=== PATIENT | male | born 1980 | race African-American/Black ===

== ENCOUNTER 2018-02-10 18:41 | Emergency (ER) | payer BC ==
[2018-02-10 19:56] VITALS: BP 159/104
--- NOTE | 2018-02-10 20:37 | RADIOLOGY REPORT (SQ) ---
EXAM DESCRIPTION: CT FACIAL AREA WITH COMPLETED DATE/TIME: 02/10/2018 8:23 pm REASON FOR STUDY: FACIAL FOREHEAD ABSCESS EVAL COMPARISON: None. TECHNIQUE: Post contrast images through the facial bones and orbits windowed for bone and soft tissu e. Additional coronal and sagittal reconstructed images reviewed. All images stored on PACS. All CT scanners at this facility use dose modulation, iterative reconstruction, and/or weight based d osing when appropriate to reduce radiation dose to as low as reasonably achievable (ALARA). [facility]: Dose Right [facility]: CareDose [facility]: Dose Right [facility]: Teradose 4D [facility]: Zagster CONTRAST TYPE AND DOSE: contrast/concentration: Isovue 350.00 mg/ml; Total Contrast Delivered: 50.0 ml; Total Saline Delivered: 50.0 ml RENAL FUNCTION: None required. The patient is less than 50 years old. RADIATION DOSE: CT Rad equipment meets quality standard of care and radiation dose reduction techniq ues were employed. CTDIvol: 30.4 mGy. DLP: 735 mGy-cm. . LIMITATIONS: None. FINDINGS: FACIAL BONES: No fracture or bone lesion. ORBITS: Intact. No fracture. Symmetric intact globes and retroorbital soft tissues. PARANASAL SINUSES: Clear. No significant mucosal thickening, mass or fluid. No nasal polyps. Maxilla ry sinus outlets are patent. SOFT TISSUES: There is mild soft tissue swelling asymmetric of the right forehead. No discrete absce ss. INFERIOR BRAIN: Limited view. No acute findings. OTHER: No other significant finding. IMPRESSION: Soft tissue swelling of the forehead without discrete abscess. Otherwise negative study . TECHNICAL DOCUMENTATION: JOB ID: [id number] Quality ID # [id number]: Final reports with documentation of one or more dose reduction techniques (e.g., Au tomated exposure control, adjustment of the mA and/or kV according to patient size, use of iterative reconstruction technique) 2010 [employer]- All Rights Reserved Reading location - IP/workstation name: [email or web address]
--- NOTE | 2018-02-10 20:43 | ER Document Report ---
HPI - HPI Patient complains to provider of: insect bite Onset: Yesterday Onset/Duration: Sudden Quality of pain: Other - sore Pain Level: 3 Context: Patient presents emergency department with complaints of bug bite to his forehead. Patient reports yesterday when he put his hat on he felt a bug bite him. He reports he has placed ice packs on the area and it still continues to swell. Eyes fever vomiting diarrhea. Denies allergies. Associated Symptoms: None Exacerbated by: Denies Relieved by: Denies Similar symptoms previously: No Recently seen / treated by doctor: No Past Medical History - General Information source: Patient - Social History Smoking Status: Unknown if Ever Smoked Cigarette use (# per day): No Frequency of alcohol use: None Drug Abuse: None Occupation: works at the [employer] Family History: CAD, Hypertension Patient has suicidal ideation: No Patient has homicidal ideation: No - Past Medical History Cardiac Medical History: Reports: Hx Hypertension Pulmonary Medical History: Reports: Hx Asthma Renal/ Medical History: Denies: Hx Peritoneal Dialysis Surgical Hx: Negative - Immunizations Hx Diphtheria, Pertussis, Tetanus Vaccination: Yes Vertical Provider Document - CONSTITUTIONAL Agree With Documented VS: Yes Exam Limitations: No Limitations General Appearance: WD/WN, No Apparent Distress - nontoxic looking - INFECTION CONTROL TRAVEL OUTSIDE OF THE [place] IN LAST 30 DAYS: No - HEENT HEENT: Atraumatic, Normocephalic. negative: Conjuctival Injection, Pharyngeal Exudate, Pharyngeal Erythema - NECK Neck: Normal Inspection, Supple. negative: Lymphadenopathy-Left, Lymphadenopathy-Right - RESPIRATORY Respiratory: No Respiratory Distress - CARDIOVASCULAR Cardiovascular: Regular Rate - MUSCULOSKELETAL/EXTREMETIES Musculoskeletal/Extremeties: MAEW, FROM - NEURO Level of Consciousness: Awake, Alert, Appropriate Motor/Sensory: No Motor Deficit - DERM Integumentary: Warm, Dry Adult Front & Back Diagram: 1 - swelling noted, not fluctuant, no induration, no warmth, no erythema, no pustule Course - Re-evaluation Re-evalutation: 02/10/18 20:53 Patient reports he was seen at the urgent care and sent over here for facial CT for possible abscess. Patient was instructed on negative CT for abscess. Instructed on Benadryl monitor site for signs and symptoms of infection and return here for concerns. Patient was also instructed to follow-up with primary care provider for recheck within 3 days. Dictation of this chart was performed using voice recognition software; therefore, there may be some unintended grammatical errors. - Vital Signs Vital signs: Temp Pulse Resp BP Pulse Ox 97.4 F 87 16 159/104 H 96 02/10/18 19:54 02/10/18 19:54 02/10/18 19:54 02/10/18 19:54 02/10/18 19:54 - Diagnostic Test Radiology reviewed: Image reviewed, Reports reviewed - EXAM DESCRIPTION: CT FACIAL AREA WITH COMPLETED DATE/TIME: 02/10/2018 8:23 pm REASON FOR STUDY: FACIAL FOREHEAD ABSCESS EVAL COMPARISON: None. TECHNIQUE: Post contrast images through the facial bones and orbits windowed for bone and soft tissue. Additional coronal and sagittal reconstructed images reviewed. All images stored on PACS. All CT scanners at this facility use dose modulation, iterative reconstruction, and/or weight based dosing when appropriate to reduce radiation dose to as low as reasonably achievable (ALARA). [facility]: Dose Right [facility]: CareDose [facility]: Dose Right [facility]: Teradose 4D [facility]: Azumio CONTRAST TYPE AND DOSE: contrast/concentration: Isovue 350.00 mg/ml; Total Contrast Delivered: 50.0 ml; Total Saline Delivered: 50.0 ml RENAL FUNCTION: None required. The patient is less than 50 years old. RADIATION DOSE: CT Rad equipment meets quality standard of care and radiation dose reduction techniques were employed. CTDIvol: 30.4 mGy. DLP: 735 mGy-cm. . LIMITATIONS: None. FINDINGS: FACIAL BONES: No fracture or bone lesion. ORBITS: Intact. No fracture. Symmetric intact globes and retroorbital soft tissues. PARANASAL SINUSES: Clear. No significant mucosal thickening, mass or fluid. No nasal polyps. Maxillary sinus outlets are patent. SOFT TISSUES: There is mild soft tissue swelling asymmetric of the right forehead. No discrete abscess. INFERIOR BRAIN: Limited view. No acute findings. OTHER: No other significant finding. IMPRESSION: Soft tissue swelling of the forehead without discrete abscess. Otherwise negative study Discharge - Discharge Clinical Impression: insect bite swollen Condition: Stable Disposition: HOME, SELF-CARE Instructions: Use of Diphenhydramine, Ice Packs ([facility]), Swollen Insect Bite or Sting ([facility]) Additional Instructions: *You have been treated for a swollen insect bite *Take benadryl as indicated *Monitor the site for signs of infection such as increasing pain, redness, swelling, warmth * ice packs to the site *Follow up with a primary care provider within 5 days for recheck *Return to ED for signs of infection, worsening condition, changes, needs Forms: Elevated Blood Pressure
== END 2018-02-10 20:50 | disposition home or self-care (01) ==
LOC: ER 18:41
DX: S00.86XA Insect bite (nonvenomous) of other part of head, initial encounter (principal); W57.XXXA Bitten or stung by nonvenomous insect and other nonvenomous arthropods, initial encounter; I10 Essential (primary) hypertension; E11.9 Type 2 diabetes mellitus without complications
CPT/HCPCS: 70487; 99283

== ENCOUNTER 2018-02-11 22:29 | Emergency (ER) | payer BC ==
[2018-02-12] MEDS ORDERED: LIDOCAINE 1% INJ-PF (10 MG/ML) 30 ML SDV INJ ONE (00:36)
[2018-02-12] MEDS ORDERED: CLINDAMYCIN HCL 150 MG CAPSULE PO ONE (01:45)
[2018-02-12] MEDS ORDERED: CEPHALEXIN 500 MG CAPSULE PO ONE (01:45)
--- NOTE | 2018-02-12 01:52 | ER Document Report ---
ED Skin Rash/Insect Bite/Abscs - General Chief Complaint: Facial Swelling Stated Complaint: FACIAL SWELLING Time Seen by Provider: 02/12/18 00:08 Mode of Arrival: Ambulatory Information source: Patient Notes: Patient is a 37-year-old male comes emergency room complaining of a lesion on the middle of his forehead. Patient states that on this past Tuesday he was working outside and he felt something biting him as he put his hat on. States that there was a pimple that started there that he thought he popped that on it started swelling on Tuesday it got worse that he went to a clinic in the told him there is nothing to do for it yesterday he went to the urgent care across the street from the hospital and was sent here to our hospital to have a CT of his head performed when he went back to get the results and they told him there was nothing wrong and to go home and take ibuprofen and warm compresses. He states that today got even bigger so he is here. TRAVEL OUTSIDE OF THE [place] IN LAST 30 DAYS: No - HPI Patient complains to provider of: Insect bite Onset: Other - 4 days ago Onset/Duration: Sudden, Worse Quality of pain: Achy Severity: Moderate Pain Level: 3 Skin Character: Abscess Skin Temperature: Warm Quality of rash: Itchy, Painful Identify cause: No Exacerbated by: Denies Relieved by: Denies Similar symptoms previously: Yes Recently seen / treated by doctor: Yes - Related Data Allergies/Adverse Reactions: No Known Allergies Allergy (Verified 02/10/18 18:42) Past Medical History - General Information source: Patient - Social History Smoking Status: Never Smoker Cigarette use (# per day): No Chew tobacco use (# tins/day): No Smoking Education Provided: No Frequency of alcohol use: None Drug Abuse: None Family History: Reviewed & Not Pertinent, CAD, Hypertension Patient has suicidal ideation: No Patient has homicidal ideation: No - Past Medical History Cardiac Medical History: Reports: Hx Hypertension Pulmonary Medical History: Reports: Hx Asthma Renal/ Medical History: Denies: Hx Peritoneal Dialysis - Immunizations Hx Diphtheria, Pertussis, Tetanus Vaccination: Yes Review of Systems - Review of Systems Constitutional: No symptoms reported EENT: No symptoms reported Cardiovascular: No symptoms reported Respiratory: No symptoms reported Gastrointestinal: No symptoms reported Genitourinary: No symptoms reported Male Genitourinary: No symptoms reported Musculoskeletal: No symptoms reported Skin: Lesions, Lumps Hematologic/Lymphatic: No symptoms reported Neurological/Psychological: No symptoms reported -: Yes All other systems reviewed and negative Physical Exam - Vital signs Vitals: Temp Pulse Resp BP Pulse Ox 99.2 F 75 16 171/90 H 97 02/11/18 22:37 02/11/18 22:37 02/11/18 22:37 02/11/18 22:37 02/11/18 22:37 Interpretation: Hypertensive - General General appearance: Alert In distress: None - HEENT Head: Normocephalic, Tenderness, Other - Physical examination of patient's forehead shows that is about 2 cm across and about half a centimeter deep and it is in a circular form. It is fluctuant to palpate and almost saclike distribution. Slightly warm to touch. There is some slight swelling just above the eyelids and bridge of the nose which appears to be from drainage from this same area that is prominent on the forehead. It could be secondary to him mass in the area as well. Not appear masslike or fluctuant just above the skin.. No: Atraumatic Eyes: Normal Conjunctiva: Normal Pharynx: Normal. No: Blood in hypopharynx, Erythema, Peritonsillar abscess, Post nasal drainage Neck: Normal, Supple. No: Anterior cervical chain, Posterior cervical chain, Kernig's, Lymphadenopathy, Meningismus - Respiratory Respiratory status: No respiratory distress Chest status: Nontender Breath sounds: Normal. No: Rales, Rhonchi, Stridor, Wheezing Chest palpation: Normal - Cardiovascular Rhythm: Regular Heart sounds: Normal auscultation Murmur: No - Extremities General upper extremity: Normal inspection, Nontender, Normal ROM, Normal strength General lower extremity: Normal inspection, Nontender, Normal ROM, Normal strength - Neurological Neuro grossly intact: Yes Cognition: Normal Orientation: AAOx4 [place] Coma Scale Eye Opening: Spontaneous [place] Coma Scale Verbal: Oriented [place] Coma Scale Motor: Obeys Commands [place] Coma Scale Total: 15 Speech: Normal - Skin Skin Temperature: Warm Skin Moisture: Dry Skin irregularity: Erythema, Lesion, Tender indurated area Course - Re-evaluation Re-evalutation: 02/12/18 01:54 It was obvious this was an area that needed to have an incision and drainage performed. Therefore we did and I did get approximately 1 mL of purulent white thick pus out. The area bled quite substantially afterwards. I did attempt to break the loculations up with the tweezers/ pickups. And attempted to express more out which I did not get a better return. Patient tolerated this procedure without major problem at all. I am placing him on clindamycin and Keflex. - Vital Signs Vital signs: Temp Pulse Resp BP Pulse Ox 99.2 F 75 16 171/90 H 97 02/11/18 22:37 02/11/18 22:37 02/11/18 22:37 02/11/18 22:37 02/11/18 22:37 Procedures - Incision and Drainage Upper Head Type: Simple Anesthetic type: 1% Lidocaine mL's of anesthetic: 1 Blade size: 11 I&D procedure: Betadine prep applied Incision Method: Incision made by scalpel Amount/type of drainage: 1 mL Adult Head Front/Back picture: 1 - Area of induration Discharge - Discharge Clinical Impression: Abscess of forehead Condition: Stable Disposition: HOME, SELF-CARE Instructions: Abscess ([facility]) Additional Instructions: Home and use warm moist compresses as we discussed 3 or 4 times a day. If it comes to ahead do not attempt to pop it it will open back up on its own. If it does get bigger and does not pop on its own please return to ER and let us open it. Take all of the antibiotics. And again should get bigger or you have any concerns that is not healing appropriately please return to ER for recheck. Prescriptions: Cephalexin Monohydrate [Keflex 500 mg Capsule] 500 mg PO Q6H 7 Days #28 capsule Clindamycin HCl 300 mg PO QID #40 capsule Forms: Elevated Blood Pressure
[2018-02-12 02:20] VITALS: BP 183/112
== END 2018-02-12 02:25 | disposition home or self-care (01) ==
LOC: ER 22:29
PROC: 0H91XZZ Drainage of Face Skin, External Approach (ICD-10-PCS; principal; 2018-02-11)
DX: L02.01 Cutaneous abscess of face (principal)
CPT/HCPCS: 99283; 10060; J3490

== ENCOUNTER 2018-02-13 02:11 | Emergency (ER) | payer BC ==
[2018-02-13 02:19] VITALS: BP 154/100
--- NOTE | 2018-02-13 02:39 | ER Document Report ---
ED General - General Chief Complaint: Facial Swelling Stated Complaint: POSSIBLE ABCESS Time Seen by Provider: 02/13/18 02:23 Notes: Patient is a 37-year-old male who presents with some swelling into his face. He was seen here 2 days ago after having an abscess drained from his forehead. He was placed on Keflex and Clindamycin. In review of the PAs note it appears that he had a break up several loculations and said there was significant bleeding during the procedure was somewhat traumatic. Patient denies any fevers. Denies any pain to the areas of swelling on his face. Denies difficulty breathing or swallowing. He has no other complaints at this time. TRAVEL OUTSIDE OF THE [place] IN LAST 30 DAYS: No - Related Data Allergies/Adverse Reactions: No Known Allergies Allergy (Verified 02/10/18 18:42) Past Medical History - Social History Smoking Status: Never Smoker Chew tobacco use (# tins/day): No Frequency of alcohol use: None Drug Abuse: None Family History: Reviewed & Not Pertinent, CAD, Hypertension Patient has suicidal ideation: No Patient has homicidal ideation: No - Past Medical History Cardiac Medical History: Reports: Hx Hypertension Pulmonary Medical History: Reports: Hx Asthma Renal/ Medical History: Denies: Hx Peritoneal Dialysis - Immunizations Hx Diphtheria, Pertussis, Tetanus Vaccination: Yes Review of Systems - Review of Systems Notes: My Normal Review Basic REVIEW OF SYSTEMS: CONSTITUTIONAL : Denies fever, chills, or sweats. EENT: Facial swelling RESPIRATORY: No difficulty breathing SKIN: Recent abscess I&D HEMATOLOGIC : Denies easy bruising or bleeding. NEUROLOGICAL: Denies headache. ALL OTHER SYSTEMS REVIEWED AND NEGATIVE. Physical Exam - Vital signs Vitals: Temp Pulse Resp BP Pulse Ox 97.8 F 78 18 154/100 H 96 02/13/18 02:15 02/13/18 02:15 02/13/18 02:15 02/13/18 02:15 02/13/18 02:15 - Notes Notes: General Appearance: Well nourished, alert, cooperative, no acute distress, no obvious discomfort. Vitals: reviewed, See vital signs table. Head: Patient does have small areas of subcutaneous swelling over the forehead itself with a previous abscess was drained. I did do a bedside ultrasound was area and there is some informed patient there but no definitive fluid collection. Patient has mild subcutaneous swelling that seems gravity dependent the goes from the forehead down around the eyes. He has no pain with extraocular motion. This swelling is nonpainful to palpation except for directly over the area with the previous abscess was incised. There are no changes in the skin tone or skin color. Eyes: PERRL, EOMI, Conjuctiva clear Mouth: No decreasd moisture Throat: No tonsillar inflammation, No airway obstruction, Skin: warm, dry, appropriate color, no rash Neuro: speech clear, oriented x 3, normal affect, responds appropriately to questions. Course - Re-evaluation Re-evalutation: 02/13/18 06:19 Patient the patient's exam I suspect that falling swelling is actually traumatic swelling gets gravity dependent pulling inferiorly over the patient's eyes and around the face. I do not suspect a spreading cellulitis and that the patient has no pain to palpation of these areas of swelling and there is no change in the color or tone of the skin. Also the patient's previous I&D was somewhat traumatic per the previous practitioner's note. He is on appropriate antibiotics. I did place an 18-gauge needle in the previous abscess in withdrawal to make sure that there is no recurring of purulent material. There was none aspirated. Encourage patient use cold packs to the face to help with the swelling. Encourage him return to ER if he has worsening swelling or feels unwell. I encouraged him to follow-up in 2 days if his swelling has not started to improve. Patient to return to ER if he has worsening swelling, fevers, or if he feels he is worsening in any way. Patient agrees with plan and will be discharged home. Dictation of this chart was performed using voice recognition software; therefore, there may be some unintended grammatical errors. - Vital Signs Vital signs: Temp Pulse Resp BP Pulse Ox 97.8 F 78 18 154/100 H 96 02/13/18 02:15 02/13/18 02:15 02/13/18 02:15 02/13/18 02:15 02/13/18 02:15 Discharge - Discharge Clinical Impression: Facial swelling Condition: Good Disposition: HOME, SELF-CARE Additional Instructions: Please continue to take your antibiotics as prescribed. Your facial swelling should start to improve over the next 24 to 48 hours. Please return to the ER for reevaluation if it is not improving after 48 hours. Please return to the ER immediately if you have fevers, significantly worsening swelling, or if you have any further concerns. Forms: Return to Work
== END 2018-02-13 02:50 | disposition home or self-care (01) ==
LOC: ER 02:11
PROC: 0H91XZZ Drainage of Face Skin, External Approach (ICD-10-PCS; principal; 2018-02-13)
DX: R22.0 Localized swelling, mass and lump, head (principal); I10 Essential (primary) hypertension
CPT/HCPCS: 99283